=== PATIENT | female | born 1945 | race Caucasian/White ===

== ENCOUNTER → 2016-08-31 | Outpatient (CLI) | payer MEDICARE ==
[~2016-08-31] MED LIST: ALPR1TAB7 PO; ASPI81TA27 PO; CITA-77 PO; CLON0.1T PO; FLUT250M2 INH; LORA1TAB12 PO; LOSA100T27 PO; NIAC250C16 PO; TIOTCAP INH; [UNRECOGNIZED DRUG - CODE] PO
[2016-08-31 16:30] LABS: Basophils # (auto) 0.1 uL; Basophils % (auto) 0.8 % (0.0-2.0); Eosinophils # (auto) 0.1 uL; Eosinophils % (auto) 1.7 % (0.0-7.0); Hematocrit 51.4 % (36.0-46.0); Hemoglobin 17.1 g/dL (12.2-16.2); Lymphocytes # (auto) 1.1 uL; Lymphocytes % (auto) 16.3 % (10.0-50.0); Mean Corpuscular Hemoglobin 32.1 pg (28.0-32.0); Mean Corpuscular Hgb Conc. 33.2 g/dL (32.0-36.0); Mean Corpuscular Volume 96.7 fL (80.0-100.0); Mean Platelet Volume 8.5 fL (7.4-10.4); Monocytes # (auto) 0.3 uL; Monocytes % (auto) 4.8 % (0.0-12.0); Neutrophils # (auto) 5.3 uL; Neutrophils % (auto) 76.4 % (37.0-80.0); Platelet Count (auto) 287 10^3/uL (140-450); Red Cell Distribution Width 13.2 % (11.6-16.0); White Blood Cell 6.9 10^3/uL (4.4-10.8)
[2016-08-31 16:36] LABS: Urine Bilirubin Negative (Negative); Urine Blood Negative /uL (Negative); Urine Color Yellow (Yellow); Urine Glucose Normal (Normal); Urine Ketone Negative (Negative); Urine Nitrite Negative (Negative); Urine Urobilinogen Normal (Negative)
[2016-08-31 17:01] LABS: Albumin 3.9 g/dL (3.4-5.0); Bilirubin, Direct 0.1 mg/dL (0-0.2); Bilirubin, Total 0.7 mg/dL (0.2-1.0); Potassium 4.4 mmol/L (3.5-5.1)
== END | disposition home or self-care (01) ==
LOC: LAB 11:00
PROVIDERS: ATTEND Internal Medicine Cardiovascular Disease
DX: I10 Essential (primary) hypertension (principal); E78.00 Pure hypercholesterolemia, unspecified; K74.1 Hepatic sclerosis; E11.9 Type 2 diabetes mellitus without complications; E03.9 Hypothyroidism, unspecified; D64.9 Anemia, unspecified; E55.9 Vitamin D deficiency, unspecified; N39.0 Urinary tract infection, site not specified
CPT/HCPCS: 36415; 80048; 80061; 80076; 81003; 82306; 83036; 84443; 85025